=== PATIENT | female | born 1955 | race American Indian/Alaskan Native ===

== ENCOUNTER 2019-02-03 09:09 | Outpatient (CLI) | payer OTHER ==
--- NOTE | 2019-02-03 10:51 | Mammography Report ---
RIGHT DIGITAL DIAGNOSTIC MAMMOGRAM CLINICAL: For clip placement after vacuum-assisted needle biopsy of a retroareolar duct. COMPARISON: 12/20/2018 FINDINGS: A retroareolar biopsy clip is identified and correlates with the site of today's biopsy. IMPRESSION: Concordant clip deployment. Signer Name: Hemant Allison MD Signed: 02/03/2019 10:47 AM Workstation Name: [id number]
--- NOTE | 2019-02-03 11:49 | Ultrasound Report ---
LIMITED RIGHT BREAST ULTRASOUND HISTORY: Retroareolar duct ectasia and with a questionable intraductal mass. COMPARISON: 12/20/2018 [facility] normal ultrasound.. FINDINGS: Focused sonographic evaluation upon the retroareolar location of the right breast demonstra adrianne a prominent dilated duct measuring approximately 3 mm in diameter. The duct appears to terminate at a possible irregular 3 to 4 mm relatively echogenic mass at the distal end of the duct closer to t he nipple. 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 Signer Name: Hemant Allison MD Signed: 02/03/2019 11:45 AM Workstation Name: [id number]
--- NOTE | 2019-02-03 11:51 | Ultrasound Report ---
ULTRASOUND-GUIDED VACUUM-ASSISTED NEEDLE CORE BIOPSY RIGHT BREAST WITH CLIP PLACEMENT CLINICAL: Retroareolar focal duct ectasia with a suspicious mass at the end of the duct. Chronic bila teral nipple inversion. FINDINGS: The procedure was explained to the patient and informed consent was obtained. Ultrasound demonstrated the previously identified duct and mass. I marked the breast with a felt tip marker and a timeout was called. The skin was prepped with Chloro -Prep and anesthetized with 1% lidocaine. Vacuum-assisted needle core biopsy was performed through tiny dermatotomy using ultrasound guidance, 2% lidocaine with epinephrine for deep anesthesia and a 13-gauge Mammotome Elite biopsy device. 4 cor es were obtained and placed in formalin. The dilated duct and mass completely disappeared. A clip was deployed at the site. The patient tolerated the procedure well and there were no apparent convocations. Hemostasis was achi eved with minimal effort and a sterile dressing was applied. A post procedure mammogram demonstrated concordant clip deployment. She left the department in good c ondition and was given instructions for wound care and follow-up. IMPRESSION: Uncomplicated ultrasound guided needle core biopsy with clip placement right breast. Signer Name: Hemant Allison MD Signed: 02/03/2019 11:47 AM Workstation Name: [id number]
== END 2019-02-03 09:10 | disposition home or self-care (01) ==
LOC: SPVWC 09:09
PROVIDERS: ATTEND Surgery
DX: D24.1 Benign neoplasm of right breast (principal); N60.41 Mammary duct ectasia of right breast; R92.2 Inconclusive mammogram
CPT/HCPCS: 88305

== ENCOUNTER 2020-06-08 10:39 | Outpatient (CLI) | payer MEDICARE ==
--- NOTE | 2020-06-08 11:27 | Mammography Report ---
DIGITAL SCREENING MAMMOGRAM WITH CAD, 06/08/2020 CLINICAL INFORMATION / INDICATION: Routine screening mammography. SCREENING MAMMO TECHNIQUE: Digital bilateral 2D mammography was obtained in the craniocaudal and mediolateral obliqu e projections. This examination was interpreted with the benefit of Computer-Aided Detection analysis . COMPARISON: 06/07/2019 FINDINGS: Breast Density: There are scattered areas of fibroglandular density. No dominant mass, suspicious calcifications, or architectural distortion in either breast. Biopsy clip again noted on the right and a few scattered nodular densities are again noted in the krysten asts. IMPRESSION: No mammographic evidence of malignancy. Follow up recommendation: Routine yearly BI-RADS Category 2: Benign. A "normal" or negative report should not discourage follow up or biopsy of a clinically significant f inding. A written summary of these findings will be mailed to the patient. The patient will be entered into a mammography reporting system which will generate a reminder letter for the patient's next appointmen t at the appropriate interval. The [employer] recommends yearly mammograms starting at age 40 and continuing as l nate as a woman is in good health. Breast MRI is recommended for women with an approximate 20-25% or greater lifetime risk of breast cancer, including women with a strong family history of breast or ova jaydon cancer or who have been treated for Hodgkin's disease. Signer Name: Saulo Laureano MD Signed: 06/08/2020 11:22 AM Workstation Name: [id number]
== END 2020-06-08 10:40 | disposition home or self-care (01) ==
LOC: SPVWC 10:39
PROVIDERS: ATTEND Surgery
DX: Z12.31 Encounter for screening mammogram for malignant neoplasm of breast (principal)
CPT/HCPCS: 77067